=== PATIENT | female | born 1980 | race American Indian/Alaskan Native ===

== ENCOUNTER 2019-05-13 02:53 | Emergency (ER) | payer MEDICAID ==
[2019-05-13 03:45] LABS: Bilirubin,Urine NEG (Negative); Blood,Urine NEG (Negative); Calcium Oxalate Crystals,Urine 2+; Color,Urine Yellow (Yellow); Mucus,Urine 3+ /HPF; Protein,Urine <15 mg/dL mg/dL (Negative)
[2019-05-13] MEDS ORDERED: ONDANSETRON 4 MG/2 ML INJ IV ONE (04:04)
[2019-05-13] MEDS ORDERED: KETOROLAC 30 MG/1 ML INJ IV ONE (04:04)
[2019-05-13 04:19] LABS: Basophils % (Auto) 0.7 % (0.0-1.8); Eosinophils % (Auto) 0.7 % (0.0-4.3); Hemoglobin 12.1 gm/dl (10.1-14.3); Lymphocytes # (Auto) 2.3 K/mm3 (1.2-5.4); Lymphocytes % (Auto) 37.1 % (13.4-35.0); Mean Corpuscular HGB Conc 34 % (30-34); Mean Corpuscular Volume 93 fl (79-97); Monocytes # (Auto) 0.4 K/mm3 (0.0-0.8); Monocytes % (Auto) 5.7 % (0.0-7.3); Platelet Count 277 K/mm3 (140-440); Red Blood Count 3.86 M/mm3 (3.65-5.03); Red Cell Distribution Width 13.5 % (13.2-15.2)
[2019-05-13 04:30] LABS: Alanine Aminotransferase 9 units/L (7-56); Albumin 3.8 g/dL (3.9-5); BUN/Creatinine Ratio 20; Blood Urea Nitrogen 12 mg/dL (7-17); Calcium 8.4 mg/dL (8.4-10.2); Hemolysis Index 3
[2019-05-13] MEDS ORDERED: POTASSIUM CHLORIDE ER 20 MEQ TAB PO ONE (04:53)
--- NOTE | 2019-05-13 05:19 | Cat Scan Report ---
CT ABDOMEN AND PELVIS WITH CONTRAST INDICATION / CLINICAL INFORMATION: MAIN: Lower abdominal pain. NAUSEA. 100 ML OMNIPAQUE 300. TECHNIQUE: Axial CT images were obtained through the abdomen and pelvis after 100 mL Omnipaque [address] scans at this location are performed using CT dose reduction for ALARA by means of automated exposure control. COMPARISON: None available. FINDINGS: LOWER CHEST: No significant abnormality. LIVER: A few tiny hepatic low densities are too small to characterize but statistically benign. BILIARY SYSTEM: No significant abnormality. PANCREAS: No significant abnormality. SPLEEN: No significant abnormality. ADRENALS: No significant abnormality. KIDNEYS and URETERS: No significant abnormality. STOMACH / BOWEL: No significant abnormality. PERITONEUM: Trace pelvic free fluid, nonspecific but may be physiologic. No free air. No fluid collec tion. LYMPH NODES: No significant adenopathy. VASCULAR STRUCTURES: No significant abnormality. URINARY BLADDER: No significant abnormality. REPRODUCTIVE ORGANS: No significant abnormality. ADDITIONAL FINDINGS: None. SKELETAL SYSTEM: No significant abnormality. IMPRESSION: 1. No acute process identified within the abdomen or pelvis to account for patient's abdominal pain. Signer Name: Selena Carrizales MD Signed: 05/13/2019 5:15 AM Workstation Name: [id number]
[2019-05-13] MEDS ORDERED: AZITHROMYCIN 250 MG TAB PO ONE (05:53)
[2019-05-13] MEDS ORDERED: cefTRIAXone/NS 1 GM/50 ML 1 GM/50 ML BAG IV ONE (05:53)
--- NOTE | 2019-05-13 06:44 | Emergency Department Report ---
ED Female HPI - General Chief complaint: Abdominal Pain Stated complaint: ABD PAIN Source: patient Mode of arrival: Ambulatory Limitations: No Limitations - History of Present Illness Initial comments: Patient is a A0 38-year-old -[place] female with no past medical history presents to the ED with complaint of acute onset persistent severe suprapubic pain that radiates to the lower back for the last 2 days. Patient also complains of dyspareunia, vaginal discharge and lack of appetite. Patient denies dysuria, urinary frequency and urgency, vaginal bleeding, nausea, vomiting, diarrhea, traumatic injury, heavy lifting, fever, chills, dizziness or chest pain or shortness of breath. MD Complaint: vaginal discharge, pelvic pain, other (lower back pain) -: Sudden, days(s) (2) Location: suprapubic Radiation: suprapubic, other (lower back) Severity: severe Severity scale (0 -10): 7 Quality: cramping, sharp, aching Consistency: constant Improves with: none Worsens with: intercourse, movement Are you Now?: No Last Menstrual Period: 05/01/19 EDC: 02/05/20 Associated Symptoms: denies other symptoms, vaginal discharge, abdominal pain. denies: vaginal bleeding, nausea/vomiting, fever/chills, headaches, loss of appetite, dysuria, hematuria, rash, seizure, shortness of breath, syncope - Related Data Sexually active: Yes (unprotected) : 2 Para: 2 A: 0 Previous Rx's Medication Instructions Recorded Last Taken Type Doxycycline Hyclate [Doxycycline 100 mg PO Q12HR #20 tab 05/13/19 Unknown Rx Hyclate TAB] Fluconazole [Diflucan TAB] 150 mg PO ONCE #1 tablet 05/13/19 Unknown Rx Ibuprofen [Motrin] 600 mg PO Q8H PRN #24 tablet 05/13/19 Unknown Rx Ondansetron [Zofran Odt] 4 mg PO Q6HR PRN #15 tab.rapdis 05/13/19 Unknown Rx metroNIDAZOLE [Flagyl] 500 mg PO Q12HR #14 tab 05/13/19 Unknown Rx traMADol [Ultram] 50 mg PO Q6HR PRN #12 tablet 05/13/19 Unknown Rx Allergies Allergy/AdvReac Type Severity Reaction Status Date / Time No Known Allergies Allergy Verified 05/13/19 03:28 ED Review of Systems ROS: Stated complaint: ABD PAIN Other details as noted in HPI Constitutional: denies: chills, fever Eyes: denies: eye pain, eye discharge, vision change ENT: denies: ear pain, throat pain Respiratory: denies: cough, shortness of breath, wheezing Cardiovascular: denies: chest pain, palpitations, dyspnea on exertion, edema, syncope, paroxysmal nocturnal dyspnea Endocrine: no symptoms reported Gastrointestinal: abdominal pain (pelvic pain). denies: nausea, diarrhea Genitourinary: discharge, dyspareunia. denies: urgency, dysuria Musculoskeletal: back pain, arthralgia. denies: joint swelling Skin: denies: rash, lesions Neurological: denies: headache, weakness, paresthesias Psychiatric: denies: anxiety, depression Hematological/Lymphatic: denies: easy bleeding, easy bruising ED Past Medical Hx - Past Medical History Previous Medical History?: No - Surgical History Past Surgical History?: Yes Additional Surgical History: x1 - Social History Smoking Status: Never Smoker Substance Use Type: None - Medications Home Medications: Home Medications Medication Instructions Recorded Confirmed Last Taken Type Doxycycline Hyclate [Doxycycline 100 mg PO Q12HR #20 tab 05/13/19 Unknown Rx Hyclate TAB] Fluconazole [Diflucan TAB] 150 mg PO ONCE #1 tablet 05/13/19 Unknown Rx Ibuprofen [Motrin] 600 mg PO Q8H PRN #24 tablet 05/13/19 Unknown Rx Ondansetron [Zofran Odt] 4 mg PO Q6HR PRN #15 tab.rapdis 05/13/19 Unknown Rx metroNIDAZOLE [Flagyl] 500 mg PO Q12HR #14 tab 05/13/19 Unknown Rx traMADol [Ultram] 50 mg PO Q6HR PRN #12 tablet 05/13/19 Unknown Rx ED Physical Exam - General Limitations: No Limitations General appearance: alert, in no apparent distress - Head Head exam: Present: atraumatic, normocephalic, normal inspection - Eye Eye exam: Present: normal appearance, PERRL, EOMI Pupils: Present: normal accommodation - ENT ENT exam: Present: normal exam, normal orophraynx, mucous membranes moist, TM's normal bilaterally, normal external ear exam - Neck Neck exam: Present: normal inspection, full ROM. Absent: tenderness, meningismus, lymphadenopathy, thyromegaly - Respiratory Respiratory exam: Present: normal lung sounds bilaterally. Absent: respiratory distress, wheezes, rales, rhonchi, chest wall tenderness, decreased breath sounds, prolonged expiratory - Cardiovascular Cardiovascular Exam: Present: regular rate, normal rhythm, normal heart sounds. Absent: systolic murmur, diastolic murmur, rubs, gallop - GI/Abdominal GI/Abdominal exam: Present: soft, tenderness (Palpable suprapubic tenderness, no guarding or rebound), normal bowel sounds. Absent: hyperactive bowel sounds, hypoactive bowel sounds - External exam: Present: normal external exam Speculum exam: Present: normal speculum exam, vaginal discharge (Frothy, malodorous greenish yellow vaginal discharge), cervical discharge Bi-manual exam: Present: cervical motion tendernes (with positive Chandelier sign), adnexal tenderness (bilateral), uterine tenderness, other (female RN cortes pittman, Ms Singleton present during the pelvic exam) - Extremities Exam Extremities exam: Present: normal inspection, full ROM, normal capillary refill - Back Exam Back exam: Present: normal inspection, tenderness (palpable lumbosacral paraspinal musculoskeletal tenderness), muscle spasm, paraspinal tenderness - Neurological Exam Neurological exam: Present: alert, oriented X3, CN II-XII intact, normal gait, reflexes normal - Psychiatric Psychiatric exam: Present: normal affect, normal mood - Skin Skin exam: Present: warm, dry, intact, normal color. Absent: rash ED Course Vital Signs 05/13/19 05/13/19 03:04 05:25 Temperature 98.3 F Pulse Rate 76 Respiratory 16 20 Rate Blood Pressure 148/88 O2 Sat by Pulse 99 Oximetry - Reevaluation(s) Reevaluation #1: 05/13/19 06:47 This is a 38-year-old -[place] female who presented to the ED with dyspareunia, vaginal discharge, suprapubic pain that radiates to the lower back for 2 days. In the ED, patient is alert and oriented 3 and is not in distress. Patient was treated for pain in the ED lab test results were reviewed and are all nonactionable except mild hypokalemia of 3.2 mmol per liter. Patient was also treated in the ED with Klor-Con 40 mEq by mouth 1 for acute hypokalemia. Abdomen pelvis CT scan with contrast showed no acute abnormalities or pathology. Pelvic exam is positive for thick frothy malodorous yellowish-green vaginal discharge with a positive chandelier sign. Patient was treated in the ED for acute pelvic inflammatory disease and was discharged home on medications. Patient was advised to follow-up with [facility] physician or primary care physician in 7-10 days for reevaluation or return to the ED immediately if symptoms get worse. ED Medical Decision Making - Lab Data Result diagrams: 05/13/19 03:36 05/13/19 03:36 - Radiology Data Radiology results: report reviewed, image reviewed Abdomen pelvis CT scan with contrast shows no acute abnormalities or pathology. - Medical Decision Making This is a 38-year-old -[place] female who presented to the ED with dyspareunia, vaginal discharge, suprapubic pain that radiates to the lower back for 2 days. In the ED, patient is alert and oriented 3 and is not in distress. Patient was treated for pain in the ED lab test results were reviewed and are all nonactionable except mild hypokalemia of 3.2 mmol per liter. Patient was also treated in the ED with Klor-Con 40 mEq by mouth 1 for acute hypokalemia. Abdomen pelvis CT scan with contrast showed no acute abnormalities or pathology. Pelvic exam is positive for thick frothy malodorous yellowish-green vaginal discharge with a positive chandelier sign. Patient was treated in the ED for acute pelvic inflammatory disease and was discharged home on medications. Patient was advised to follow-up with [facility] physician or primary care physician in 7-10 days for reevaluation or return to the ED immediately if symptoms get worse. - Differential Diagnosis Acute UTI; Acute PID; Ovarian cysts; colitis, appendicitis Critical care attestation.: If time is entered above; I have spent that time in minutes in the direct care of this critically ill patient, excluding procedure time. ED Disposition Clinical Impression: Acute pelvic inflammatory disease (PID), Bacterial vaginosis Abdominal pain Qualifiers: Abdominal location: lower abdomen, unspecified Qualified Code(s): R10.30 - Lower abdominal pain, unspecified Disposition: - TO HOME OR SELFCARE Is pt being admited?: No Does the pt Need Aspirin: No Condition: Stable Instructions: Abdominal Pain (ED), Bacterial Vaginosis (ED), Pelvic Inflammatory Disease (ED) Additional Instructions: Take medication with food, drink plenty of fluids and follow-up with your primary care physician in 7-10 days for reevaluation. Return to the ED immediately if symptoms get worse. Prescriptions: Fluconazole [Diflucan TAB] 150 mg PO ONCE #1 tablet Doxycycline Hyclate [Doxycycline Hyclate TAB] 100 mg PO Q12HR #20 tab metroNIDAZOLE [Flagyl] 500 mg PO Q12HR #14 tab Ibuprofen [Motrin] 600 mg PO Q8H PRN #24 tablet PRN Reason: Pain traMADol [Ultram] 50 mg PO Q6HR PRN #12 tablet PRN Reason: Pain Ondansetron [Zofran Odt] 4 mg PO Q6HR PRN #15 tab.rapdis PRN Reason: Nausea Referrals: PRIMARY CARE,MD [Primary Care Provider] - 3-5 Days Forms: STI Treatment and Prevention, Work/School Release Form(ED) Time of Disposition: 06:52 Print Language: SETSWANA
[2019-05-13 07:12] VITALS: BP 128/79
== END 2019-05-13 07:00 | disposition home or self-care (01) ==
LOC: ED 02:53
DX: N76.0 Acute vaginitis (principal); N73.9 Female pelvic inflammatory disease, unspecified; B96.89 Other specified bacterial agents as the cause of diseases classified elsewhere; Z79.899 Other long term (current) drug therapy; Z79.1 Long term (current) use of non-steroidal anti-inflammatories (NSAID)
CPT/HCPCS: 36415; 74177; 80053; 81001; 84703; 85025; 87210; 87591; 96365; 96375; 99285; J0696; J1885; J2405; Q9967